=== PATIENT | male | born 1945 | race Caucasian/White ===

== ENCOUNTER → 2018-03-19 | Outpatient (CLI) | payer OTHER ==
[~2018-03-19] MED LIST: ADULT LOW DOSE81 MG PO; BENICAR HCT 201 EACH PO; BYSTOLIC 5 MG5 M1 PO; FISH OIL 1,001000 M1 PO; JALYN 0.5-0.41 EACH PO; KEFLEX500 MG PO; LIVALO4 MG PO; NEXIUM40 MG PO; SYNTHROID; [UNRECOGNIZED DRUG - REMARK]
== END ==
LOC: ULTRA 11:07
DX: I65.23 Occlusion and stenosis of bilateral carotid arteries (principal); R09.89 Other specified symptoms and signs involving the circulatory and respiratory systems; E03.9 Hypothyroidism, unspecified; I10 Essential (primary) hypertension

== ENCOUNTER → 2018-04-01 | Outpatient (CLI) | payer OTHER ==
--- NOTE | ~2018-04-01 | EXE ---
[facility] Jitendra [address] [place] [address] STRESS ECHOCARDIOGRAM Name: ELIZABETH GUTIERREZ Wade Room #: [facility]#: [id number] Admission: 04/01/18 Attend Phys: Jimbo Noonan, Discharge: Date of : 41 Date of Service: 04/01/18 1613 Report #: [id number] THIS REPORT FOR: //name// APPROVED REPORT Study performed: 04/01/2018 11:11:52 Exam: Stress Echocardiogram Indication: CAD, chest pain Patient Location: Out-Patient Stress Nurse: Tamra Balderas RN Status: routine Ht: 5 ft 9 in HR: 65 bpm BP: 138/84 mmHg Rhythm: NSR Medical History Medical History: CAD s/p stent Medications: Listed on worksheet Allergies: No known drug allergies Cardiac Risk Factors: HTN, Hyperlipidemia Procedure The patient underwent an Exercise Stress Test using the Afshin Protocol. Blood pressure, heart rate, and EKG were monitored. An Echocardiogram was performed by safety technician in four stages in quad fashion. At peak stress, four selected images were obtained and placed side by side with resting images for comparison. Stress Test Details Stress Test: Exercise stress testing was performed using a Afshin protocol. HR Resting HR: 64 bpm Max Heart Rate (APMHR): 145 bpm Max HR Achieved: 151 bpm Target HR (85% APMHR): 123 bpm % of APMHR: 104 Recovery HR: 86 bpm HR response to stress: Normal HR response to stress BP Resting BP: 138/84 mmHg Max BP: 178/80 mmHg Recovery BP: 152/84 mmHg [facility] [address] [place] [address] STRESS ECHOCARDIOGRAM Name: ELIZABETH GUTIERREZ Room #: [facility] Celia#: [id number] Admission: 04/01/18 Attend Phys: Jimbo Noonan, Discharge: Date of : 41 Date of Service: 04/01/18 1613 Report #: [id number] ECG Resting ECG: Sinus Rhythm, RBBB Stress ECG: Sinus Rhythm ST Change: Normal Maximum ST Deviation: 0 mm Arrhythmia: None Recovery ECG: Sinus Rhythm Recovery ST Change: Normal Recovery ST Deviation: 0 mm Recovery Arrhythmia: None Clinical Reason for Termination: Completed protocol, fatigue Exercise duration: 9 min 14 sec Highest Stage Achieved: Stage 4: 4.2 mph at 16% grade. Exercise capacity: 10.40 METs Angina Score: None Stress ECG Conclusion Clinical: Non-ischemic ECG: Non-ischemic Call Treadmill Score is 9.0 which is Low risk. Pre-Stress Echo The resting Echocardiogram showed normal left ventricular contractility with an estimated Ejection Fraction of about 55-60%. No significant valvular abnormalities noted. Post-Stress Echo The stress Echocardiogram showed normal left ventricular contractility with an estimated Ejection Fraction of about 65-70%. Conclusion Clinical Response: Non-ischemic Exercise Capacity: Average Stress ECG Response: Non-ischemic Stress Echo Images: Non-ischemic The left ventricle is normal in size and wall thickness in both the rest and stress images. Normal stress echocardiogram with maximal exercise stress. Other Information Study Quality: Adequate/significant lung artifact post exercise. <Conclusion> [facility] [address] [address] STRESS ECHOCARDIOGRAM Name: BRENDAELIZABETH Room #: [facility]#: [id number] Admission: 04/01/18 Attend Phys: Jimbo Noonan, Discharge: Date of : 41 Date of Service: 04/01/181612 Report #: [id number] The left ventricle is normal in size and wall thickness in both the rest and stress images. Normal stress echocardiogram with maximal exercise stress. <ELECTRONICALLY SIGNED> By: Chon Conte MD, FACC 04/01/181612 12 12 Chon Conte MD, FACC /INF
== END ==
LOC: CV 10:46
DX: I25.10 Atherosclerotic heart disease of native coronary artery without angina pectoris (principal)

== ENCOUNTER 2018-05-09 11:31 | Inpatient (IN) | payer OTHER ==
[~2018-05-09] VITALS: Ht 175.3 cm; Wt 89.4 kg
--- NOTE | ~2018-05-09 | EKG ---
[address] [address] ELECTROCARDIOGRAM REPORT Name: BRENDAELIZABETH Olvera Room #: 364-P ADM IN M.R.#: [id number] Admission: 05/09/18 Attend Phys: Keiry Edmonds Discharge: Date of : 41 Report #: [id number] THIS REPORT FOR: //name// [facility] ED Test Date: 2018-05-09 Test Time: 12:00:11 Pat Name: ELIZABETH GUTIERREZ Department: Room: 364 Gender: M Football Coach: ya : 1945 Requested By: Kelly Odom Order Number: [id number] MD: Bacilio Grewal Measurements Intervals [place] Rate: 99 P: 43 AR: 174 QRS: 124 QRSD: 117 T: 45 QT: 348 QTc: 447 Interpretive Statements Sinus rhythm left atrial enlargement Nonspecific intraventricular conduction delay Non specific st/t wave changes Compared to ECG 08/26/2009 06:40:19 Intraventricular conduction delay now present Electronically Signed On 05-10-2018 23:32:42 BUSINESS INFORMATION ANALYST by Bacilio Grewal [email or web address] <ELECTRONICALLY SIGNED> By: Bacilio Grewal MD 05/10/18 2332 1200 99 Bacilio Grewal MD /EPI
[2018-05-09 11:33] VITALS: BP 145/87
[2018-05-09 12:12] LABS: URINE BILIRUBIN NEGATIVE (Negative); URINE BLOOD TRACE (Negative); URINE CLARITY CLEAR; URINE COLOR YELLOW; URINE GLUCOSE-RANDOM* NEGATIVE (Negative); URINE KETONES TRACE (Negative); URINE LEUKOCYTES-REFLEX NEGATIVE (Negative); URINE NITRITE-REFLEX NEGATIVE (Negative); URINE PROTEIN (DIPSTICK) 1+ (Negative); URINE SPECIFIC GRAVITY 1.025 (1.005-1.035); URINE UROBILINOGEN 0.2 E.U./dl (0.2-1.0)
[2018-05-09 12:21] LABS: ANION GAP 11 mmol/L (7-16); BUN 32 mg/dL (7-18); CALCIUM 9.7 mg/dL (8.5-10.1); CHLORIDE 103 mmol/L (98-107); CO2 27 mmol/L (21-32); CREATININE 1.4 mg/dL (0.7-1.3); GLUCOSE 185 mg/dL (74-106); SODIUM 141 mmol/L (136-145)
[2018-05-09 12:23] LABS: BACTERIA-REFLEX 1-9 Few /HPF (None Seen); CASTS None Seen /LPF (None Seen); CRYSTALS None Seen /LPF (None Seen); SQUAMOUS None Seen /LPF (0-3); URINE RBC 0-2 Rare /HPF (0-2); URINE WBC-REFLEX None Seen /HPF (0-5)
[2018-05-09 12:24] LABS: BASOPHILS 0.3 % (0.0-2.0); EOSINOPHILS 0.9 % (0.0-3.0); HEMATOCRIT 47.7 % (42.0-52.0); HEMOGLOBIN 16.7 gm/dL (14.0-18.0); LYMPHOCYTES 9.2 % (24.0-44.0); MCH 31.5 pg (26.0-34.0); MCHC 35.1 g/dL (28.0-37.0); MCV 89.8 fL (80.0-100.0); MONOCYTES 7.8 % (1.0-8.0); PLATELET COUNT 214 thou/uL (150-400); POLYS 81.8 % (36.0-66.0); RBC 5.31 mil/uL (4.50-6.00)
[2018-05-09 12:30] LABS: ALBUMIN 4.4 g/dL (3.4-5.0); LIPASE 39 U/L (73-393); SGOT 30 U/L (15-37); SGPT 36 U/L (30-65); TOTAL BILIRUBIN 1.1 mg/dL (<0.1-1.0); TOTAL PROTEIN 8.2 g/dL (6.4-8.2); TROPONIN-I <0.06 ng/mL (<0.06)
[2018-05-09 14:14] VITALS: BP 174/90
[2018-05-09] MEDS ORDERED: SYNTHROID125 MC1 PO (16:07)
[2018-05-09] MEDS ORDERED: ASPIR 8181 MG PO (16:08)
[2018-05-09 17:12] VITALS: BP 162/94
[2018-05-09 19:49] VITALS: BP 147/92
[2018-05-09 23:53] VITALS: BP 111/68
[2018-05-10 05:30] VITALS: BP 109/66
[2018-05-10 06:26] LABS: CALCIUM 8.3 mg/dL (8.5-10.1); CREATININE 1.4 mg/dL (0.7-1.3); MAGNESIUM 1.8 mg/dL (1.8-2.4); POTASSIUM 3.9 mmol/L (3.5-5.1)
[2018-05-10 07:33] VITALS: BP 140/80
[2018-05-10 17:03] VITALS: BP 136/73
[2018-05-10 19:30] VITALS: BP 132/73
[2018-05-11 03:52] VITALS: BP 116/61
[2018-05-11 05:50] LABS: CALCIUM 7.8 mg/dL (8.5-10.1); CREATININE 1.1 mg/dL (0.7-1.3); PHOSPHORUS 1.9 mg/dL (2.5-4.9); POTASSIUM 3.5 mmol/L (3.5-5.1)
[2018-05-11 07:26] VITALS: BP 113/50
[2018-05-11] MEDS ORDERED: CIPRO250 M2 PO (09:58)
[2018-05-11] MEDS ORDERED: FLAGYL500 M1 PO (09:58)
[2018-05-11 15:13] VITALS: BP 113/50
[2018-05-12] MEDS ORDERED: TRAMADOL 50 MG50 MG PO (21:38)
== END 2018-05-11 18:21 | disposition home or self-care (01) | DRG 371 ==
LOC: ER 11:31 → 3W 13:57 → EROBS 13:57 → 3W 15:13
PROVIDERS: Hospitalist; Physician Assistant
DX: A04.9 Bacterial intestinal infection, unspecified (principal); E43 Unspecified severe protein-calorie malnutrition; K56.609 Unspecified intestinal obstruction, unspecified as to partial versus complete obstruction; K57.32 Diverticulitis of large intestine without perforation or abscess without bleeding; N17.9 Acute kidney failure, unspecified; K56.7 Ileus, unspecified; E89.0 Postprocedural hypothyroidism; I10 Essential (primary) hypertension; K76.9 Liver disease, unspecified; N40.0 Benign prostatic hyperplasia without lower urinary tract symptoms; E83.39 Other disorders of phosphorus metabolism; K21.9 Gastro-esophageal reflux disease without esophagitis; F32.9 Major depressive disorder, single episode, unspecified; Z95.5 Presence of coronary angioplasty implant and graft; Z98.42 Cataract extraction status, left eye; Z98.41 Cataract extraction status, right eye; Z88.1 Allergy status to other antibiotic agents; Z88.8 Allergy status to other drugs, medicaments and biological substances; Z79.899 Other long term (current) drug therapy
CPT/HCPCS: 10879

== ENCOUNTER 2018-05-12 19:22 | Emergency (ER) | payer OTHER ==
[~2018-05-12] VITALS: Ht 175.3 cm; Wt 88.5 kg
[~2018-05-12 19:22] MED LIST changes: +ASPIR 8181 MG PO; +CIPRO250 M2 PO; +FLAGYL500 M1 PO; +SYNTHROID125 MC1 PO
[2018-05-12 20:26] LABS: URINE BILIRUBIN NEGATIVE (Negative); URINE BLOOD TRACE (Negative); URINE CLARITY CLEAR; URINE COLOR YELLOW; URINE GLUCOSE-RANDOM* NEGATIVE (Negative); URINE KETONES NEGATIVE (Negative); URINE LEUKOCYTES-REFLEX NEGATIVE (Negative); URINE NITRITE-REFLEX NEGATIVE (Negative); URINE PROTEIN (DIPSTICK) NEGATIVE (Negative); URINE SPECIFIC GRAVITY 1.025 (1.005-1.035); URINE UROBILINOGEN 0.2 E.U./dl (0.2-1.0)
[2018-05-12 20:29] LABS: ABSOLUTE NEUTROPHILS 6.1 thou/uL (1.4-8.2); BASOPHILS 0.4 % (0.0-2.0); CREATININE 0.9 mg/dL (0.7-1.3); EOSINOPHILS 3.9 % (0.0-3.0); HEMATOCRIT 39.8 % (42.0-52.0); HEMOGLOBIN 14.2 gm/dL (14.0-18.0); LYMPHOCYTES 19.3 % (24.0-44.0); MCH 31.4 pg (26.0-34.0); MCHC 35.6 g/dL (28.0-37.0); MCV 88.2 fL (80.0-100.0); MONOCYTES 10.4 % (1.0-8.0); PLATELET COUNT 177 thou/uL (150-400); POTASSIUM 3.9 mmol/L (3.5-5.1); RBC 4.51 mil/uL (4.50-6.00); RDW 13.7 % (10.5-14.5); WBC 9.3 thou/uL (4.0-11.0)
[2018-05-12 20:36] LABS: ALBUMIN 3.5 g/dL (3.4-5.0); TOTAL PROTEIN 6.4 g/dL (6.4-8.2)
[2018-05-12] MEDS ORDERED: TRAMADOL 50 MG50 MG PO (21:38)
[2018-05-12 22:20] VITALS: BP 148/67
== END 2018-05-12 22:20 | disposition home or self-care (01) ==
LOC: ER 19:22
PROVIDERS: Emergency Medicine
DX: K57.92 Diverticulitis of intestine, part unspecified, without perforation or abscess without bleeding (principal); M19.90 Unspecified osteoarthritis, unspecified site; Z88.1 Allergy status to other antibiotic agents; Z88.8 Allergy status to other drugs, medicaments and biological substances; Z90.89 Acquired absence of other organs; Z95.5 Presence of coronary angioplasty implant and graft

== ENCOUNTER → 2019-09-07 | Outpatient (CLI) | payer OTHER ==
[~2019-09-07] MED LIST changes: +TRAMADOL 50 MG50 MG PO
== END ==
LOC: SJCVC 13:33
DX: I21.19 ST elevation (STEMI) myocardial infarction involving other coronary artery of inferior wall (principal); I45.19 Other right bundle-branch block; R94.31 Abnormal electrocardiogram [ECG] [EKG]; I25.10 Atherosclerotic heart disease of native coronary artery without angina pectoris; I10 Essential (primary) hypertension; E78.00 Pure hypercholesterolemia, unspecified; I65.23 Occlusion and stenosis of bilateral carotid arteries; R53.83 Other fatigue; R06.02 Shortness of breath; J44.9 Chronic obstructive pulmonary disease, unspecified; E11.9 Type 2 diabetes mellitus without complications; K21.9 Gastro-esophageal reflux disease without esophagitis; M19.90 Unspecified osteoarthritis, unspecified site; Z79.82 Long term (current) use of aspirin; Z79.899 Other long term (current) drug therapy; Z82.49 Family history of ischemic heart disease and other diseases of the circulatory system; Z87.891 Personal history of nicotine dependence

== ENCOUNTER → 2019-10-27 | Outpatient (CLI) | payer OTHER | LOC: SJCVCIMAG 11:16 | DX: I25.10 Atherosclerotic heart disease of native coronary artery without angina pectoris (principal); R53.83 Other fatigue; R06.02 Shortness of breath; I10 Essential (primary) hypertension; E78.5 Hyperlipidemia, unspecified; Z95.1 Presence of aortocoronary bypass graft ==

== ENCOUNTER → 2020-06-23 | Outpatient (CLI) | payer OTHER | LOC: SJCVCIMAG 10:09 | PROVIDERS: ATTEND Internal Medicine Cardiovascular Disease | DX: I65.23 Occlusion and stenosis of bilateral carotid arteries (principal); I25.10 Atherosclerotic heart disease of native coronary artery without angina pectoris; I10 Essential (primary) hypertension; E78.00 Pure hypercholesterolemia, unspecified; J44.9 Chronic obstructive pulmonary disease, unspecified; E11.9 Type 2 diabetes mellitus without complications; K21.9 Gastro-esophageal reflux disease without esophagitis; Z98.890 Other specified postprocedural states; Z79.82 Long term (current) use of aspirin; Z79.899 Other long term (current) drug therapy; Z87.891 Personal history of nicotine dependence ==

== ENCOUNTER → 2021-03-27 | Outpatient (CLI) | payer OTHER | LOC: SJCVC 10:21 | PROVIDERS: ATTEND Internal Medicine Cardiovascular Disease | DX: R94.31 Abnormal electrocardiogram [ECG] [EKG] (principal); I45.89 Other specified conduction disorders; I25.10 Atherosclerotic heart disease of native coronary artery without angina pectoris; I10 Essential (primary) hypertension; E78.00 Pure hypercholesterolemia, unspecified; I65.23 Occlusion and stenosis of bilateral carotid arteries; R53.83 Other fatigue; J44.9 Chronic obstructive pulmonary disease, unspecified; E11.9 Type 2 diabetes mellitus without complications; K21.9 Gastro-esophageal reflux disease without esophagitis; I25.2 Old myocardial infarction; Z82.49 Family history of ischemic heart disease and other diseases of the circulatory system; Z88.8 Allergy status to other drugs, medicaments and biological substances; Z79.82 Long term (current) use of aspirin; Z79.899 Other long term (current) drug therapy; Z72.89 Other problems related to lifestyle; Z87.891 Personal history of nicotine dependence ==

== ENCOUNTER → 2021-04-05 | Outpatient (CLI) | payer OTHER | LOC: SJCVCIMAG 10:18 | PROVIDERS: ATTEND Internal Medicine Cardiovascular Disease | DX: I25.10 Atherosclerotic heart disease of native coronary artery without angina pectoris (principal); I10 Essential (primary) hypertension; E78.5 Hyperlipidemia, unspecified; R53.83 Other fatigue ==

== ENCOUNTER 2021-04-15 13:57 | Emergency (ER) | payer OTHER ==
[~2021-04-15] VITALS: Ht 175.3 cm; Wt 87.5 kg
[2021-04-15] MEDS ORDERED: ROSUVASTATIN CA10 MG PO (14:01)
[2021-04-15 14:57] LABS: ABSOLUTE NEUTROPHILS 8.2 thou/uL (1.4-8.2); BASOPHILS 0.8 % (0.0-2.0); EOSINOPHILS 4.3 % (0.0-3.0); HEMATOCRIT 40.7 % (42.0-52.0); LYMPHOCYTES 20.2 % (24.0-44.0); MCH 30.7 pg (26.0-34.0); MCHC 34.4 g/dL (28.0-37.0); MCV 89.1 fL (80.0-100.0); MONOCYTES 7.4 % (1.0-8.0); PLATELET COUNT 219 thou/uL (150-400); POLYS 67.3 % (36.0-66.0); RBC 4.57 mil/uL (4.50-6.00); RDW 13.7 % (10.5-14.5); WBC 12.2 thou/uL (4.0-11.0)
[2021-04-15 15:02] LABS: CALCIUM 8.9 mg/dL (8.5-10.1); CREATININE 1.2 mg/dL (0.7-1.3)
[2021-04-15 15:07] LABS: URINE BILIRUBIN NEGATIVE (Negative); URINE BLOOD TRACE (Negative); URINE CLARITY CLEAR; URINE COLOR YELLOW; URINE GLUCOSE-RANDOM* NEGATIVE (Negative); URINE KETONES NEGATIVE (Negative); URINE LEUKOCYTES-REFLEX NEGATIVE (Negative); URINE NITRITE-REFLEX NEGATIVE (Negative); URINE PROTEIN (DIPSTICK) NEGATIVE (Negative); URINE SPECIFIC GRAVITY <= 1.005 (1.005-1.035); URINE UROBILINOGEN 0.2 E.U./dl (0.2-1.0)
[2021-04-15 15:08] LABS: DIRECT BILIRUBIN 0.1 mg/dL (<0.1-0.2); TOTAL BILIRUBIN 0.7 mg/dL (0.2-1.0); TOTAL PROTEIN 6.9 g/dL (6.4-8.2)
[2021-04-15] MEDS ORDERED: LEVAQUIN 500 M500 MG PO (18:50)
[2021-04-15] MEDS ORDERED: FLAGYL500 M1 PO (18:50)
[2021-04-15 20:52] VITALS: BP 167/74
== END 2021-04-15 20:53 | disposition home or self-care (01) ==
LOC: ER 13:57
PROVIDERS: Emergency Medicine
DX: K57.32 Diverticulitis of large intestine without perforation or abscess without bleeding (principal); R10.32 Left lower quadrant pain; I25.10 Atherosclerotic heart disease of native coronary artery without angina pectoris; F12.90 Cannabis use, unspecified, uncomplicated; Z90.89 Acquired absence of other organs; Z98.890 Other specified postprocedural states; Z79.82 Long term (current) use of aspirin; Z79.891 Long term (current) use of opiate analgesic; Z79.1 Long term (current) use of non-steroidal anti-inflammatories (NSAID); Z79.899 Other long term (current) drug therapy; Z88.1 Allergy status to other antibiotic agents; Z88.8 Allergy status to other drugs, medicaments and biological substances